=== PATIENT | female | born 1950 | race Caucasian/White ===

== ENCOUNTER 2016-08-02 19:11 | Inpatient (IN) | payer MEDICARE, OTHER ==
[2016-08-02] VITALS (7 sets, daily range): BP systolic 118–169; BP diastolic 66–96; PULSE 78–158; RESP 18; TEMP 98.7; O2SAT 93–95
[~2016-08-02] VITALS: Ht 157.5 cm; Wt 86.2 kg
[~2016-08-02 19:11] MED LIST: ALBU6.7H INH; ASPI81TA82 PO; BUTA1CAP7 OR; CARI1TAB34 PO; CYMB60CA PO; DESL5TAB11 PO; DICY10CA13 PO; FEXO180T PO; FLUT50SP; FURO20TA PO; GLUC1000 PO; LEVEMIR SQ; LIPI40TA PO; LISI5 PO; LORTA5 PO; METO50CR PO; MOTI25CH PO; OMEP20TA PO; POTA-267 PO; ROBA750T3 PO; SAXA1TBM PO; SUMA50 PO; [UNRECOGNIZED DRUG - SUPPLY]
[2016-08-02] MEDS ORDERED: DILTIAZEM HCL 25 MG/5 ML VIAL ONE (19:27)
[2016-08-02] MEDS ORDERED: SODIUM CHLORIDE 0.9% FLUSH 5 ML FLUSH IVF PRN ×2 (19:30)
[2016-08-02] MEDS ORDERED: DILTIAZEM HCL 25 MG/5 ML VIAL IV ONE (19:30)
[2016-08-02] MEDS ORDERED: DILTIAZEM INJ 125 MG in SODIUM CHLORIDE 0.9% INJ 100 ML IV SCH (19:30)
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
[2016-08-02 19:54] LABS: INTERNATIONAL NORMALIZED RATIO 0.9 RATIO
[2016-08-02] MEDS ORDERED: SODIUM CHLORID 0.9% 500 ML INJ 500 ML IV ONE (20:00)
[2016-08-02] MEDS ORDERED: MORPHINE SULFATE 4 MG/ML INJ IV PUSH ONE (20:00)
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
[2016-08-02 20:19] LABS: BICARBONATE 26.8 MEQ/L (21.0-32.0); MAGNESIUM 1.7 MG/DL (1.5-2.5); POTASSIUM 3.3 MEQ/L (3.5-5.1)
[2016-08-02] MEDS ORDERED: INSULIN HUMAN REGULAR 1,000 UNITS/10 ML VIAL IVP ONE (20:30)
[2016-08-02] MEDS ORDERED: POTASSIUM CHLORIDE 20 MEQ CONTROLLED RELEASE TAB PO ONE (20:30)
[2016-08-02] MEDS ORDERED: HYDR-3533 PO (21:30)
[2016-08-02] MEDS ORDERED: LEVEMIR SQ (21:30)
[2016-08-02] MEDS ORDERED: MECL-62 PO (21:30)
[2016-08-02] MEDS ORDERED: ZOLO50TA PO (21:30)
[2016-08-02] MEDS ORDERED: DICY10CA12 PO (21:30)
[2016-08-02] MEDS ORDERED: FURO20TA PO (21:30)
[2016-08-02] MEDS ORDERED: OMEP20TA PO (21:30)
[2016-08-02] MEDS ORDERED: SOMA350T PO (21:30)
[2016-08-02] MEDS ORDERED: HUMALOG SQ (21:30)
[2016-08-02] MEDS ORDERED: CYMB60CA PO (21:30)
[2016-08-02] MEDS ORDERED: FEXO180T PO (21:30)
[2016-08-02] MEDS ORDERED: ASPI1TAB69 PO (21:30)
[2016-08-02] MEDS ORDERED: METF1000 PO (21:30)
[2016-08-02] MEDS ORDERED: LIPI40TA PO (21:30)
[2016-08-02] MEDS ORDERED: ALBU6.7H INH (21:30)
[2016-08-02] MEDS ORDERED: LISI-519 PO (21:30)
[2016-08-02] MEDS ORDERED: KOMB5TAB2 PO (21:30)
[2016-08-02] MEDS ORDERED: ROBA750T PO (21:30)
[2016-08-02] MEDS ORDERED: IMIT25TA PO (21:30)
[2016-08-02] MEDS ORDERED: BUTA1CAP5 PO (21:30)
[2016-08-02] MEDS ORDERED: MAGNESIUM HYDROXIDE SUSP 30 ML CUP PO PRN (22:30)
[2016-08-02] MEDS ORDERED: ONDANSETRON HCL 4 MG/2 ML VIAL IVP PRN (22:30)
[2016-08-02] MEDS ORDERED: NALOXONE HCL 0.4 MG/ML AMP IV PRN (22:30)
[2016-08-02] MEDS ORDERED: TEMAZEPAM 15 MG CAP PO PRN (22:30)
[2016-08-02] MEDS ORDERED: SODIUM CHLORIDE 0.9% FLUSH 5 ML FLUSH FLUSH PRN (22:30)
[2016-08-02] MEDS ORDERED: SENNOSIDES 8.6 MG TAB PO PRN (22:30)
[2016-08-02] MEDS ORDERED: ACETAMINOPHEN 325 MG TAB PO PRN (22:30)
[2016-08-02] MEDS ORDERED: MAGNESIUM SULFATE 1 GM PREMIX 100 ML IV ONE (22:45)
[2016-08-02] MEDS ORDERED: DEXTROSE 50% IN WATER 50 ML VIAL(D50) IV PUSH PRN (22:45)
[2016-08-02] MEDS ORDERED: ACETAMINOPHEN/HYDROcodone 325 MG/5 MG TAB PO PRN (22:45)
[2016-08-02] MEDS ORDERED: METHOCARBAMOL 500 MG TAB PO PRN (22:45)
[2016-08-02] MEDS ORDERED: GLUCAGON 1 MG/ML VIAL OTHER PRN (22:45)
[2016-08-02 22:51] LABS: AUTOMATED NEUTROPHIL # 7.9 TH/MM3 (1.8-7.7); BASOPHIL # 0.2 TH/MM3 (0-0.2); BASOPHIL % 1.3 % (0.0-2.0); EOSINOPHIL # 0.2 TH/MM3 (0-0.4); EOSINOPHIL % 1.5 % (0.0-4.0); HEMATOCRIT 37.9 % (35.0-46.0); LYMPH % 21.3 % (9.0-44.0); LYMPHOCYTE # 2.4 TH/MM3 (1.0-4.8); MEAN CELL VOLUME 75.9 FL (80.0-100.0); MEAN CORPUSCULAR HEMOGLOBIN 24.1 PG (27.0-34.0); MEAN CORPUSCULAR HGB CONC 31.8 % (32.0-36.0); MONO % 6.8 % (0.0-8.0); NEUT % 69.1 % (16.0-70.0); RED CELL DISTRIBUTION WIDTH 16.3 % (11.6-17.2); WHITE BLOOD COUNT 11.4 TH/MM3 (4.0-11.0)
[2016-08-02] MEDS ORDERED: PILL SPLITTER OTHER PRN (23:00)
[2016-08-02 23:11] LABS: HEMO FLAGS AUTO DIFF
[2016-08-02 23:12] LABS: PLATELET COUNT 141 TH/MM3 (150-450)
[2016-08-02 23:17] LABS: BASOPHILS 2 % (0-2); EOSINOPHILS 1 % (0-4); MYELOCYTES 2 % (0-0); NEUTROPHIL # MANUAL DIFF 7.9 TH/MM3 (1.8-7.7); POLYS (SEG NEUTROPHILS) 67 % (16-70); SCAN/DIFF FINAL DIFF MANUAL; WBC DIFF SAMPLE 100
[2016-08-02 23:18] LABS: PLATELET MORPHOLOGY CLUMPED (NORMAL)
[2016-08-02 23:19] LABS: OVALOCYTES 1+ (NORMAL); TOXIC VACUOLATION PRESENT (NONE SEEN)
[2016-08-02 23:23] LABS: PLATELET ESTIMATE SMEAR LOW (NORMAL)
[2016-08-02] MEDS: ENOXAPARIN SODIUM 100 MG/ML SYRINGE SQ SCH (23:25)
[2016-08-03] VITALS (21 sets, daily range): BP systolic 144–176; BP diastolic 52–78; PULSE 66–108; RESP 16–20; TEMP 98.5–98.9; O2SAT 92–98
[2016-08-03] MEDS: INSULIN ASPART SUPPLEMENTAL SCALE SQ SCH ×4 (08:03→21:23)
[2016-08-03 08:12] LABS: BICARBONATE 26.2 MEQ/L (21.0-32.0); POTASSIUM 3.8 MEQ/L (3.5-5.1)
[2016-08-03] MEDS ORDERED: ASPIRIN EC 81 MG TABEC PO SCH (09:00)
[2016-08-03] MEDS: SODIUM CHLORIDE 0.9% FLUSH 5 ML FLUSH FLUSH SCH ×2 (09:00→21:14)
[2016-08-03] MEDS ORDERED: ATORVASTATIN 40 MG TAB PO SCH ×2 (09:00→21:00)
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
[2016-08-03] MEDS: LISINOPRIL 5 MG TAB PO SCH (09:24)
--- NOTE | 2016-08-03 09:33 | MB ---
cc: CHRISTIANO HANCOCK DO DATE OF CONSULTATION August 03, [address] Toni Motley PRIMARY PRIVATE DUTY NURSE Dr. Wade De Oliveira REASON FOR CONSULTATION A-fib with RVR. Mildly elevated troponin. HISTORY OF PRESENT ILLNESS Myranda Thomson is a pleasant 66-year-old female who presented to [place] [facility] on August 02, 2016, due to an elevated heart rate with head and jaw pain. She states that she was lying in bed and started feeling her heart starting to race. She then started having jaw pain into her head and along with this she had some chest pain. She had similar episodes in the past where she was brought in and found to be in A-fib/RVR. She does not believe that she is on any rate control medications. She was given a dose of Cardizem 20 mg IV twice, then started on a Cardizem drip at 10 mg/hour which decreased her heart rate to 90 and converted her to normal sinus rhythm. With this she had resolution of her chest pain. PAST MEDICAL HISTORY 1. Atrial fibrillation. 2. Hypertension 3. Diabetes mellitus. 4. Migraines. PAST SURGICAL HISTORY 1. A-fib ablation by pulmonary vein isolation (December 09, 2012). 2. Cholecystectomy. 3. Hysterectomy 4. Chest tube insertion. ALLERGIES No known drug allergies. MEDICATIONS 1. Lisinopril 5 mg daily 2. Lipitor 40 mg every night 3. Lasix 20 mg daily 4. Aspirin 81 mg daily 5. Fexofenadine 180 [address] 60 mg daily. 7. Zoloft unknown dose. 8. Meclizine 25 mg as needed 9. Dicyclomine 10 mg b.i.d. 10. Albuterol 2 puffs b.i.d. as needed 11. Metformin 1000 mg daily. 12. Robaxin 750 mg b.i.d. 13. Kombiglyze XR 10/999 daily. 14. Levemir 75 mg b.i.d. 15. Lispro 10 units b.i.d. 16. Lortab 5/325 every 4 hours as needed for pain. 17. Omeprazole 20 mg daily. 18. Imitrex 25 mg as needed for migraine headache. FAMILY HISTORY Positive for diabetes mellitus and coronary artery disease. Denies sudden cardiac within the family. SOCIAL HISTORY Denies alcohol, tobacco or drug abuse. REVIEW OF SYSTEMS Fourteen systems were reviewed including osteopathic pertinent positives and negatives above, otherwise negative. PHYSICAL EXAMINATION Vital Signs: Temperature 98.7, heart rate 67, blood pressure 174/78, respirations 18, pulse ox 98% on 2 liters. In General: The patient appears well, in no acute distress. Alert, awake and oriented x 3. Extraocular muscles intact. Mucous membranes moist. Neck: Supple. No JVD at 45 degrees. No carotid bruits heard bilaterally. Carotid upstroke is brisk in nature. Heart: Regular rate and rhythm. Positive first and second heart sounds with no noted murmurs, gallops or rubs. PMI is difficult to determine. Lungs: Decreased breath sounds at bilateral bases. Abdomen: Soft, nontender, nondistended. No organomegaly noted. Extremities: Trace edema bilaterally. Neurologic: No focal deficits. Skin: Warm, dry and intact. Osteopathic Exam: Mild lordosis. No kyphoscoliosis or paraspinal tender points. LABORATORY FINDINGS White blood cells 11.4, hemoglobin 12.0, hematocrit 37.9, platelets 141. Potassium 3.8, BUN 12, creatinine 0.78. Troponin 0.15. BNP 63. Electrocardiogram (August 02, 2016, at 19:24) A-fib with RVR, nonspecific ST-T wave changes, no significant difference compared to previous episode of atrial fibrillation April 22, 2016. IMPRESSIONS 1. Atrial fibrillation with rapid ventricular response requiring Cardizem IV and Cardizem drip, currently converted back to normal sinus rhythm. 2. Mildly elevated troponin most likely due to elevated heart rate, cannot rule out underlying coronary artery disease. 3. Diabetes mellitus type 2. 4. Hypertension. 5. Hypercholesterolemia. 6. History of atrial fibrillation ablation with pulmonary vein isolation (February 08, 2013). RECOMMENDATIONS 1. Myranda originally came in with A-fib and RVR and was given Cardizem IV and then placed on a Cardizem drip which has since converted to NSR. We will attempt to change her over to Cardizem p.o. 2. As far as her minimally elevated troponin, this is most likely due to an elevation in her heart rate. I spoke to her about undergoing a pharmacologic nuclear stress test while here in the hospital which she is agreeable to. 3. Depending on the results of the stress test, I will discussed with her consideration of anticoagulation strategy as she has a CHADS-VASC score of 4. Thank you for allowing me to see Myranda Thomson. If there are any questions, please do not hesitate to call. Christiano Hancock DO VGP/SSB /8:56 AM /9:16 AM VANESSA
[2016-08-03] MEDS: ENOXAPARIN SODIUM 100 MG/ML SYRINGE SQ SCH ×2 (09:54→22:48)
[2016-08-03] MEDS: DILTIAZEM HCL 30 MG TAB PO SCH ×3 (10:40→21:12)
[2016-08-03] MEDS ORDERED: MECLIZINE HCL 25 MG TAB PO PRN (11:30)
[2016-08-03] MEDS ORDERED: ALBUTEROL SULFATE 90 MCG/ACT HFA 8 GM INHALER INH PRN (11:30)
[2016-08-03] MEDS ORDERED: MORPHINE SULFATE 4 MG/ML INJ IV PUSH PRN (11:30)
[2016-08-03] MEDS ORDERED: REGADENOSON INJ 0.4 MG/5 ML SYR ONE (13:19)
--- NOTE | 2016-08-03 15:06 | RADRPT ---
EXAM DATE/TIME: 08/03/2016 12:58 [facility] COMPARISON: MYOCARDIAL PERF PHARM SPECT, GATED W/EF, August 30, 2014, 12:08. INDICATIONS : Left chest pain. Angina. Atrial fibrillation. DOSE: 26.9 mCi Tc99m Myoview at stress. 8.1 mCi Tc99m Myoview at rest. 0.4 mg Lexiscan STRESS SYMPTOMS: Headache and dyspnea. EJECTION FRACTION: > 70% MEDICAL HISTORY : Hypercholesterolemia. Chronic obstructive pulmonary disease. Diabetes mellitus type 2. Hypertension. SURGICAL HISTORY : Hysterectomy. Cardiac ablation ENCOUNTER: Initial ACUITY: 1 day PAIN SCALE: 7/10 LOCATION: Left chest TECHNIQUE: The patient underwent pharmacologic stress with infusion of prescribed dose. Continuous ECG tracing was monitored during stress. Gated SPECT imaging was performed after stress and conventional SPECT i maging was performed at rest. The examination was performed on a SPECT/CT scanner, both attenuation and non-corrected datasets were reviewed. FINDINGS: DISTRIBUTION: The maximum perfused segment at stress is in the lateral wall. PERFUSION STUDY: The pattern of perfusion at stress is within normal limits. GATED STUDY: There is intact wall motion and thickening without hypokinetic or dyskinetic segments. CONCLUSION: No reversible perfusion defects. No focal wall motion abnormalities. Ejection fraction within normal limits. RISK CATEGORY: 1- Low Risk. Amado Byrne MD on August 03, 2016 at 15:02 Board Certified Radiologist. This report was verified electronically.
[2016-08-03] MEDS: ACETAMIN 325 MG/BUTALBITAL 50 MG/CAFFEINE 40 MG TAB PO PRN ×2 (16:02→21:08)
[2016-08-03] MEDS: INSULIN ASPART 1,000 UNITS/10 ML VIAL SQ SCH (17:55)
[2016-08-03] MEDS ORDERED: INSULIN DETEMIR 100 UNITS/ML VIAL SQ SCH (21:00)
[2016-08-03] MEDS: DICYCLOMINE HCL 10 MG CAP PO SCH (21:09)
[2016-08-03] MEDS: INSULIN DETEMIR 100 UNITS/ML VIAL SQ SCH (21:13)
[2016-08-03] MEDS: METHOCARBAMOL 500 MG TAB PO SCH (21:14)
[2016-08-03] MEDS: ACETAMINOPHEN/HYDROcodone 325 MG/5 MG TAB PO PRN (22:48)
[2016-08-04] VITALS (15 sets, daily range): BP systolic 128–142; BP diastolic 50–76; PULSE 58–90; RESP 14–18; TEMP 97.7–97.9; O2SAT 94–97
[2016-08-04] MEDS: ACETAMIN 325 MG/BUTALBITAL 50 MG/CAFFEINE 40 MG TAB PO PRN ×3 (04:24→13:34)
[2016-08-04] MEDS: DILTIAZEM HCL 30 MG TAB PO SCH ×2 (04:24→08:54)
[2016-08-04] MEDS: ACETAMINOPHEN/HYDROcodone 325 MG/5 MG TAB PO PRN (06:15)
[2016-08-04] MEDS: INSULIN ASPART SUPPLEMENTAL SCALE SQ SCH ×2 (06:16→11:09)
[2016-08-04] MEDS: INSULIN ASPART 1,000 UNITS/10 ML VIAL SQ SCH (06:16)
--- NOTE | 2016-08-04 06:51 | EKG ---
Date Performed: 08/03/2016 Time Performed: 07:25:41 PTAGE: 66 years EKG: Sinus rhythm NONSPECIFIC ST & T-WAVE ABNORMALITY BORDERLINE ECG INTERPRETATION BASED ON A DEFAULT AGE OF 40 YEARS PREVIOUS TRACING : 08/02/2016 19.24 Compared to the previous tracing, Afib with RVR is n o longer present DOCTOR: Dae Wilhelm Interpretating Date/Time 08/04/2016 06:47:58
--- NOTE | 2016-08-04 07:01 | EKG ---
Date Performed: 08/02/2016 Time Performed: 19:24:48 PTAGE: 66 years EKG: ATRIAL FIBRILLATION WITH RAPID VENTRICULAR RESPONSE NONSPECIFIC ST & T-WAVE ABNORMALITY ABN ORMAL RHYTHM ECG INTERPRETATION BASED ON A DEFAULT AGE OF 40 YEARS PREVIOUS TRACING : 04/22/2016 00.10 Compared to prior tracing no significant change DOCTOR: Dae Wilhelm Interpretating Date/Time 08/04/2016 06:59:06
[2016-08-04] MEDS: INSULIN DETEMIR 100 UNITS/ML VIAL SQ SCH (08:52)
[2016-08-04] MEDS: DICYCLOMINE HCL 10 MG CAP PO SCH (08:53)
[2016-08-04] MEDS: METHOCARBAMOL 500 MG TAB PO SCH (08:53)
[2016-08-04] MEDS: SODIUM CHLORIDE 0.9% FLUSH 5 ML FLUSH FLUSH SCH (08:54)
[2016-08-04] MEDS: LISINOPRIL 5 MG TAB PO SCH (08:54)
[2016-08-04] MEDS ORDERED: ASPIRIN EC 81 MG TABEC PO SCH (09:00)
[2016-08-04] MEDS ORDERED: DULoxetine HCl DR 60 MG CAP PO SCH (09:00)
[2016-08-04] MEDS ORDERED: LORATADINE 10 MG TAB PO SCH (09:00)
[2016-08-04] MEDS ORDERED: PANTOPRAZOLE SOD 20 MG DELAYED RELEASE TAB PO SCH (09:00)
[2016-08-04] MEDS ORDERED: FUROSEMIDE 20 MG TAB PO SCH (09:00)
--- NOTE | 2016-08-04 09:15 | PD.CARD.PN ---
Subjective Subjective Remarks No chest pain, no shortness of breath, no palpitations Still has her typical migraine, somewhat relieved with Fioricet Objective Medications Current Medications Medications (Trade) Dose Ordered Sig/Prashant Route Start Time Stop Time Status Last Admin (Cardizem Inj/NS Inj) 125 ml @ 0 mls/hr TITRATE IV 08/02/16 19:30 08/02/16 20:06 (NS Flush) 2 ml UNSCH PRN FLUSH 08/02/16 22:30 (NS Flush) 2 ml BID FLUSH 08/03/16 09:00 08/04/16 08:54 (Tylenol) 650 mg Q4H PRN PO 08/02/16 22:30 08/03/16 02:00 (Zofran Inj) 4 mg Q6H PRN IVP 08/02/16 22:30 08/03/16 15:24 (Milk Of Magnesia Liq) 30 ml Q12H PRN PO 08/02/16 22:30 (Senokot) 17.2 mg Q12H PRN PO 08/02/16 22:30 (Restoril) 15 mg HS PRN PO 08/02/16 22:30 08/03/16 22:52 (Narcan Inj) 0.4 mg UNSCH PRN IV 08/02/16 22:30 (Robaxin) 750 mg BID PRN PO 08/02/16 22:45 08/03/16 21:10 (Prinivil) 5 mg DAILY PO 08/03/16 09:00 08/04/16 08:54 (Lovenox Inj) 100 mg Q12H SQ 08/02/16 23:00 08/03/16 22:48 (D50w (Vial) Inj) 25 ml UNSCH PRN IV PUSH 08/02/16 22:45 (Glucagon Inj) 1 mg UNSCH PRN OTHER 08/02/16 22:45 (Pill Splitter) 1 ea UNSCH PRN OTHER 08/02/16 23:00 (Cardizem) 30 mg Q6H PO 08/03/16 10:00 08/04/16 08:54 (Morphine Inj) 2 mg Q3H PRN IV PUSH 08/03/16 11:30 08/03/16 15:24 (Proair Hfa Inh) 2 puff BID PRN INH 08/03/16 11:30 (Ecotrin Ec) 81 mg DAILY PO 08/04/16 09:00 08/04/16 08:54 (Lipitor) 40 mg HS PO 08/03/16 21:00 08/03/16 21:12 (Fioricet 325-50-40) 1 tab Q4H PRN PO 08/03/16 11:30 08/04/16 08:54 (Bentyl) 10 mg BID PO 08/03/16 21:00 08/04/16 08:53 (Cymbalta Dr) 60 mg DAILY PO 08/04/16 09:00 08/04/16 08:53 (Lasix) 20 mg DAILY PO 08/04/16 09:00 08/04/16 08:54 ([place] 5-325 Mg) 1 tab Q4H PRN PO 08/03/16 11:30 08/04/16 06:15 (Levemir Inj) 57 units BID SQ 08/03/16 21:00 08/04/16 08:52 (Antivert) 25 mg Q4HR PRN PO 08/03/16 11:30 (Protonix) 20 mg DAILY PO 08/04/16 09:00 08/04/16 08:53 (Claritin) 10 mg DAILY PO 08/04/16 09:00 08/04/16 08:53 (NovoLOG INJ) 10 units BIDAC SQ 08/03/16 16:00 08/04/16 06:16 (Robaxin) 750 mg BID PO 08/03/16 21:00 08/04/16 08:53 Vital Signs / I&O Vital Signs Date Time Temp Pulse Resp B/P Pulse Ox O2 Delivery O2 Flow Rate FiO2 08/04/16 03:00 97.7 68 14 142/76 94 08/03/16 23:00 98.5 87 16 155/70 93 08/03/16 19:00 98.9 86 16 148/78 92 08/03/16 18:00 96 08/03/16 17:00 76 08/03/16 16:26 98.8 86 20 151/52 92 08/03/16 15:25 83 18 151/74 95 Nasal Cannula 2 08/03/16 12:08 67 18 174/75 98 Nasal Cannula 3 08/03/16 11:30 73 16 164/74 96 Nasal Cannula 3 I/O 08/03/16 08/03/16 08/03/16 08/04/16 08/04/16 08/04/16 07:00 15:00 23:00 07:00 15:00 23:00 Intake Total 240 ml 240 ml 620 ml Output Total 900 ml 700 ml Balance 240 ml -660 ml -80 ml Intake Oral 240 ml 240 ml 620 ml Output Urine Total 900 ml 700 ml Physical Exam GENERAL: NAD, AAOx3 SKIN: Warm and dry. HEAD: Atraumatic. Normocephalic. EYES: Pupils equal and round. No scleral icterus. No injection or drainage. ENT: No nasal bleeding or discharge. Mucous membranes pink and moist. NECK: Trachea midline. No JVD. CARDIOVASCULAR: Regular rate and rhythm. No murmurs noted RESPIRATORY: No accessory muscle use. Clear to auscultation. Breath sounds equal bilaterally. GASTROINTESTINAL: Abdomen soft, non-tender, nondistended. Hepatic and splenic margins not palpable. MUSCULOSKELETAL: Extremities without clubbing, cyanosis, or edema. No obvious deformities. NEUROLOGICAL: Awake and alert. No obvious cranial nerve deficits. Motor grossly within normal limits. Five out of 5 muscle strength in the arms and legs. Normal speech. PSYCHIATRIC: Appropriate mood and affect; insight and judgment normal. Laboratory Laboratory Tests Test 08/02/16 08/02/16 08/02/16 08/03/16 19:20 21:10 22:15 01:45 Prothrombin Time 10.0 SEC (9.8-11.6) Prothromb Time International 0.9 RATIO Ratio Activated Partial 24.0 SEC Thromboplast Time (24.3-30.1) Sodium Level 141 MEQ/L (136-145) Potassium Level 3.3 MEQ/L (3.5-5.1) Chloride Level 103 MEQ/L (98-107) Carbon Dioxide Level 26.8 MEQ/L (21.0-32.0) Anion Gap 11 MEQ/L (5-15) Blood Urea Nitrogen 16 MG/DL (7-18) Creatinine 1.06 MG/DL (0.50-1.00) Estimat Glomerular Filtration 52 ML/MIN (>89) Rate Random Glucose 297 MG/DL (74-106) Calcium Level 9.4 MG/DL (8.5-10.1) Magnesium Level 1.7 MG/DL (1.5-2.5) Total Creatine Kinase 49 U/L (26-192) Troponin I 0.04 NG/ML 0.13 NG/ML (0.02-0.05) (0.02-0.05) B-Type Natriuretic Peptide 63 PG/ML (0-100) White Blood Count 11.4 TH/MM3 (4.0-11.0) Red Blood Count 5.00 MIL/MM3 (4.00-5.30) Hemoglobin 12.0 GM/DL (11.6-15.3) Hematocrit 37.9 % (35.0-46.0) Mean Corpuscular Volume 75.9 FL (80.0-100.0) Mean Corpuscular Hemoglobin 24.1 PG (27.0-34.0) Mean Corpuscular Hemoglobin 31.8 % Concent (32.0-36.0) Red Cell Distribution Width 16.3 % (11.6-17.2) Platelet Count 141 TH/MM3 (150-450) Mean Platelet Volume 8.8 FL (7.0-11.0) Neutrophils (%) (Auto) 69.1 % (16.0-70.0) Lymphocytes (%) (Auto) 21.3 % (9.0-44.0) Monocytes (%) (Auto) 6.8 % (0.0-8.0) Eosinophils (%) (Auto) 1.5 % (0.0-4.0) Basophils (%) (Auto) 1.3 % (0.0-2.0) Neutrophils # (Auto) 7.9 TH/MM3 (1.8-7.7) Lymphocytes # (Auto) 2.4 TH/MM3 (1.0-4.8) Monocytes # (Auto) 0.8 TH/MM3 (0-0.9) Eosinophils # (Auto) 0.2 TH/MM3 (0-0.4) Basophils # (Auto) 0.2 TH/MM3 (0-0.2) CBC Comment AUTO DIFF Differential Total Cells 100 Counted Neutrophils % (Manual) 67 % (16-70) Lymphocytes % 21 % (9-44) Monocytes % 7 % (0-8) Eosinophils % 1 % (0-4) Basophils % 2 % (0-2) Neutrophils # (Manual) 7.9 TH/MM3 (1.8-7.7) Myelocytes 2 % (0-0) Differential Comment FINAL DIFF MANUAL Atypical Lymphocytes % (0-0) Toxic Vacuolation PRESENT (NONE SEEN) Platelet Estimate LOW (NORMAL) Platelet Morphology Comment CLUMPED (NORMAL) Ovalocytes 1+ (NORMAL) Test 08/03/16 07:23 Sodium Level 141 MEQ/L (136-145) Potassium Level 3.8 MEQ/L (3.5-5.1) Chloride Level 107 MEQ/L (98-107) Carbon Dioxide Level 26.2 MEQ/L (21.0-32.0) Anion Gap 8 MEQ/L (5-15) Blood Urea Nitrogen 12 MG/DL (7-18) Creatinine 0.74 MG/DL (0.50-1.00) Estimat Glomerular Filtration 78 ML/MIN (>89) Rate Random Glucose 277 MG/DL (74-106) Calcium Level 8.5 MG/DL (8.5-10.1) Troponin I 0.15 NG/ML (0.02-0.05) Assessment and Plan Problem List: (1) Atrial fibrillation with RVR (2) Elevated troponin Assessment and Plan 1) Afib with RVR, history of Afib ablation, controlled on Cardizem PO 2) Mildly elevated troponin from elevated heart rate, pharmacologic nuclear stress test negative 3) Previously on Xarelto before ablation, since ablation had no Afib on Holter monitor so it was stopped. Due to new episode of Afib since ablation, and CHADSVASC2 = 4, I recommended that she start back on Xarelto. Discussed with the patient and she agrees 4) Stable for discharge from a cardiovascular prospective on Cardizem and Xarelto, follow up with Dr. De Oliveira in 2-3 weeks, can obtain outpatient echocardiogram at that time, EF normal on nuclear stress test Christiano Watson DO Aug 04, 2016 09:15
--- NOTE | 2016-08-04 10:19 | HHI.PR ---
Subjective Interval History Alert, oriented,, no chest pain, complaining of headache Review of Systems Constitutional Constitutional Remarks 10 systems reviewed and otherwise negative Vitals/Results Intake & Output 08/03/16 08/03/16 08/04/16 15:00 23:00 07:00 Intake Total 240 ml 240 ml 620 ml Output Total 900 ml 700 ml Balance 240 ml -660 ml -80 ml Intake Oral 240 ml 240 ml 620 ml Output Urine Total 900 ml 700 ml Vital Signs Vital Signs Date Time Temp Pulse Resp B/P Pulse Ox O2 Delivery O2 Flow Rate FiO2 08/04/16 10:00 64 08/04/16 09:50 95 Nasal Cannula 2.00 08/04/16 09:00 76 08/04/16 08:00 80 08/04/16 07:00 68 08/04/16 07:00 97.7 68 18 142/50 97 08/04/16 06:00 58 08/04/16 05:00 68 08/04/16 04:00 66 08/04/16 03:00 97.7 68 14 142/76 94 08/04/16 03:00 87 08/04/16 02:00 72 08/04/16 01:00 76 08/04/16 00:00 82 08/03/16 23:00 87 08/03/16 23:00 98.5 87 16 155/70 93 08/03/16 22:00 88 08/03/16 21:00 108 08/03/16 20:00 88 08/03/16 19:07 91 08/03/16 19:00 98.9 86 16 148/78 92 08/03/16 18:00 96 08/03/16 17:00 76 08/03/16 16:26 98.8 86 20 151/52 92 08/03/16 15:25 83 18 151/74 95 Nasal Cannula 2 08/03/16 12:08 67 18 174/75 98 Nasal Cannula 3 08/03/16 11:30 73 16 164/74 96 Nasal Cannula 3 CBC/BMP: 08/02/16 2215 08/03/16 0723 Physical Exam General General Appearance: Well Developed, Comfortable, Obese Eyes Eye Exam: Pupils Reactive Ears & Nose Ears & Nose Exam: Nasal Mucosa [place] Throat Throat Exam: Oral Mucosa [place] & Moist Neck Neck Exam: Trachea Midline Pulmonary Resp Exam: Breath Sounds Equal Cardiology CV Exam: Normal Sinus Rhythm, Good Perfusion Gastrointestinal/Abdomen GI Exam: Non-Tender, Bowel Sounds Present Musculoskeletal MS Exam: Normal Tone Integumentary Skin Exam: Warm, Dry Neurologic Neuro Exam: Awake, Oriented VTE Prophylaxis VTE Prophylaxis Meds: Heparin Assessment/Plan Assessment/Plan Assessment Atrial fibrillation, rapid response on admission, adequate response today Chest discomfort on admission, stress test was negative History of diabetes, hypertension, obesity, thrombocytopenia, hyperlipidemia, renal dysfunction Management Discharge home today Resume home medications Discussed with Dr. Pimentel Continue aspirin Needs to lose weight Needs better control for her diabetes Needs better control of blood pressure Discussed with patient Discussed with nurse Follow-up with primary physician Discussed Condition with: Medical Consult Discharge Minutes: 40 Bonifacio Pacheco MD Aug 04, 2016 10:19
[2016-08-04] MEDS ORDERED: XARE20TA PO (10:22)
[2016-08-04] MEDS ORDERED: RIVAROXABAN 20 MG TAB PO SCH (17:00)
== END 2016-08-04 13:59 | disposition home or self-care (01) | DRG 309 ==
LOC: NEPE 19:11 → INTOOBSV 21:46 → NEDA 21:46 → OBSVTOIN 08-03 00:17 → NEDH 08-03 02:45 → HCIS 08-03 15:46
PROVIDERS: ADMIT Specialist; ATTEND Specialist
DX: I48.91 Unspecified atrial fibrillation (principal); N17.9 Acute kidney failure, unspecified; D69.6 Thrombocytopenia, unspecified; J44.9 Chronic obstructive pulmonary disease, unspecified; E11.65 Type 2 diabetes mellitus with hyperglycemia; G43.909 Migraine, unspecified, not intractable, without status migrainosus; I10 Essential (primary) hypertension; J45.909 Unspecified asthma, uncomplicated; H91.90 Unspecified hearing loss, unspecified ear; K21.9 Gastro-esophageal reflux disease without esophagitis; E87.6 Hypokalemia; E78.5 Hyperlipidemia, unspecified; M54.5 Low back pain; G89.29 Other chronic pain; E66.9 Obesity, unspecified; F32.9 Major depressive disorder, single episode, unspecified; Z68.38 Body mass index [BMI] 38.0-38.9, adult; Z79.4 Long term (current) use of insulin; Z87.891 Personal history of nicotine dependence
CPT/HCPCS: 71010; 78452; 80048; 82550; 82948; 83735; 83880; 84484; 85007; 85027; 85610; 85730; 93005; 93017; 96365; 96366; 96375; 96376; A9502; G0378; J1650; J1815; J2270; J2405; J2785; J3475; J7040